=== PATIENT | female | born 1930 | race Caucasian/White ===

== ENCOUNTER → 2020-07-15 | Outpatient (CLI) | payer MEDICARE, OTHER ==
--- NOTE | 2020-07-16 16:10 | REP ---
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 Adenopathy visible on mammography was biopsied revealing marginal zone lymphoma. COMPARISON: None. TECHNIQUE: Sixty-five minutes following the intravenous injection of a 8.15 mCi dose of F-18 FDG, three-dimensional PET scintigraphy is acquired from the skull vertex to the toes. Triplanar noncontrast CT scanning is acquired through the same anatomic range for attenuation correction, and image registration with scan parameters optimized to minimize radiation exposure to the patient. PET scintigraphy and CT datasets were fused and displayed on a workstation with multiplanar and projection display capability. FINDINGS: In the head and neck there are is shotty minimally active lymphadenopathy in the supraclavicular regions bilaterally left a little more prominently than right. Maximum standard uptake value here is 3.08. Two or 3 supraclavicular lymph nodes are noted on each side. There is bilateral hypermetabolic axillary adenopathy. Metabolic activity in these low enlarged axillary lymph nodes is mildly increased ranging up to 3.66. There are multiple axillary lymph nodes on each side. There is no intrathoracic hypermetabolic disease seen. Of old granulomatous changes are noted. There is a large calcified granuloma in the right lung base. The liver has a horizontal configuration status post right hepatectomy. 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 No focal liver lesion or focal hepatic hypermetabolic uptake is seen. There is however hypermetabolic retroperitoneal and periaortic lymphadenopathy. Maximum standard uptake value in these lymph nodes ranges up to 4.28. There is bilateral internal and external iliac adenopathy which is mildly hypermetabolic as well. A right internal iliac lymph node is seen with maximum standard uptake value 5.16 although this may be influenced by nearby activity from the urinary bladder. No hypermetabolic inguinal adenopathy is seen. Scan is otherwise unremarkable. IMPRESSION: Low-level hypermetabolic uptake is seen in bilateral axillary adenopathy as well as in a few small shotty lymph nodes in the supraclavicular region bilaterally and in periaortic and bilateral internal and external iliac adenopathy. 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 Status post partial hepatectomy. No other abnormal hypermetabolic uptake. Old granulomatous disease in the chest. <Electronically signed by Derrick [place] > 07/16/20 [id number]
== END ==
LOC: M PLARAD 08:15
PROVIDERS: ATTEND Family Medicine
DX: C85.81 Other specified types of non-Hodgkin lymphoma, lymph nodes of head, face, and neck (principal); R59.0 Localized enlarged lymph nodes; Z90.89 Acquired absence of other organs
CPT/HCPCS: 78816; A9552